=== PATIENT | female | born 1970 | race Caucasian/White ===

== ENCOUNTER 2023-12-15 12:55 | Outpatient (CLI) | payer BC | END 2023-12-15 12:56 | disposition home or self-care (01) | LOC: CSHMAMMO 12:55 | PROVIDERS: ATTEND Internal Medicine | DX: Z08 Encounter for follow-up examination after completed treatment for malignant neoplasm (principal); Z85.3 Personal history of malignant neoplasm of breast; Z98.890 Other specified postprocedural states | CPT/HCPCS: G0279 ==

== ENCOUNTER 2024-12-27 08:28 | Outpatient (CLI) | payer BC | END 2024-12-27 08:29 | disposition home or self-care (01) | LOC: CSHMAMMO 08:28 | PROVIDERS: ATTEND Specialist | DX: R92.1 Mammographic calcification found on diagnostic imaging of breast (principal) | CPT/HCPCS: G0279 ==